=== PATIENT | female | born 1950 | race African-American/Black ===

== ENCOUNTER 2019-08-04 10:40 | Outpatient (CLI) | payer MEDICARE, OTHER ==
[2019-08-04 11:59] LABS: Bacteria/HPF 2+ HPF (None Seen); Bilirubin Negative (Negative); Blood, Urine 3+ (Negative); Calcium Oxalate Crystals Rare HPF (None Seen); Clarity Turbid (Clear); Glucose, Urine (Dipstick) Normal (Negative); Leukocyte 500 Leu/uL (Negative); Nitrite Negative (Negative); Protein, Urine (Dipstick) 100 mg/dL (Neg-Trace); RBC/HPF Greater than 50 HPF (0-3); Urobilinogen Normal mg/dL (Less than 2); WBC/HPF Greater than 50 HPF (0-3)
== END 2019-08-04 10:41 | disposition home or self-care (01) ==
LOC: LABBT 10:40
PROVIDERS: ATTEND Urology
DX: Z01.818 Encounter for other preprocedural examination (principal); N20.0 Calculus of kidney
CPT/HCPCS: 81001; 87086; 93005; 93010

== ENCOUNTER 2019-08-08 07:49 | Day surgery (SDC) | payer MEDICARE, OTHER ==
[2019-08-08] MEDS ORDERED: Levofloxacin 500 mg/D5W 100 ml Premix Bag ONE (10:54)
[2019-08-08] MEDS ORDERED: Iothalamate Meglumine 60% 50 ML VIAL FS ONE (11:16)
[2019-08-08] MEDS ORDERED: Fentanyl 100 MCG/2 ML VIAL ONE ×2 (11:18→13:25)
[2019-08-08] MEDS ORDERED: Famotidine/PF 20 mg/2ml Vial ONE (11:18)
[2019-08-08] MEDS ORDERED: PROPOFOL 200 MG/20 ML VIAL ONE (11:40)
[2019-08-08] MEDS ORDERED: Lidocaine 1% PF 5 ML VIAL ONE (11:40)
[2019-08-08] MEDS ORDERED: Glycopyrrolate 0.2 MG/ML 5 ML SYRINGE ONE (11:40)
[2019-08-08] MEDS ORDERED: Rocuronium Bromide 10 MG/ML (10ML VIAL) ONE (11:40)
[2019-08-08] MEDS ORDERED: Ondansetron PF 4 MG/2 ML Vial ONE (11:40)
[2019-08-08] MEDS ORDERED: hydrALAZINE 20 MG/ML VIAL ONE (13:10)
--- NOTE | 2019-08-08 13:34 | RAD ---
XR IVP Retrograde History: Right sided stones Comparison: CT Stone protocol June 2019 Findings: Multiple fluoroscopic images were obtained. Right double-J ureteral stent was placed in goo d position. Impression: Satisfactory postprocedural appearance right double-J ureteral stent.
[2019-08-08] MEDS ORDERED: HYDROmorphone 0.5 MG/0.5 ML SYRINGE ONE ×2 (14:01→15:29)
--- NOTE | 2019-08-08 14:18 | OP ---
DATE OF PROCEDURE: 08/08/2019 SERVICE: Urology. PREOPERATIVE DIAGNOSIS: Right ureteral and renal stones. POSTOPERATIVE DIAGNOSIS: Right ureteral and renal stones. PROCEDURES PERFORMED: Right ureteroscopy, laser lithotripsy, basket extraction of stones, and placement of 6 x 26 double-J stent with string attached. INDICATION FOR PROCEDURE: Ms. Lindsey is a 68-year-old black female with history of nephrolithiasis. She underwent urgent right ureteral stenting previously due to urinary tract infection with right-sided ureteral stones at [facility]. She is now coming in for definitive stone management. All risks and benefits have been discussed, and she has agreed to proceed forward. DESCRIPTION OF PROCEDURE: After identification of armband and verification of consent, the patient was brought back to the operating room, where she underwent general anesthesia with endotracheal intubation. She was then placed in dorsal lithotomy position, prepped and draped in usual sterile fashion. After appropriate time-out, a lubricated 22-American rigid cystoscope was introduced per urethra into the bladder, and attention turned to the right ureteral orifice, from which there was a stent emanating. Flexible grasper was used to grasp the stent and bring it up to the level of the urethral meatus. A 0.035 Sensor wire was then advanced through the ureteral stent up to the level of renal pelvis, and the stent was removed and discarded. A semi-rigid ureteroscope was then brought in alongside the Sensor wire into the distal ureter, where stones were encountered. There were approximately 5 stones within the ureter, each of which were lasered with a 270 micron ball-tip laser fiber and then extracted with a 1.9-American ZeroTip Nitinol basket. Upon completion, the entire ureter was clear. Using the ureteroscope, a Amplatz Super Stiff wire was then placed through the ureteroscope into the kidney. The ureteroscope was then removed and an 11/13 x 36 cm ureteral access sheath was advanced over the Super Stiff wire into the proximal ureter, inner cannula, and the Super Stiff wire were then removed leaving the outer sheath and Sensor wire in place as a safety wire. A flexible digital ureteroscope was then passed through the ureteral access sheath into the kidney, where one additional stone was found. This was lasered and then extracted using the same ZeroTip Nitinol basket. Final pyeloscopy did not demonstrate any additional residual stones within the kidney. There was one calyx, which was obstructed, which could not be accessed, but I felt that if there was a stone in there, it would not pass as the calyx has almost completely blocked. Pull-back ureteroscopy was employed and no additional stones were seen in the ureter. A 6 x 26 double-J stent was then re-advanced over the Sensor wire under fluoroscopy back up into the kidney. The wire pulled, leaving a good curl in the kidney and a good curl in the bladder confirmed fluoroscopically. The cystoscope sheath was used to drain the bladder and the string attached to the patient's inner thigh with an OpSite. The patient was then taken out of positioning, awakened, taken to PACU for recovery in stable condition. COMPLICATIONS: None. ESTIMATED BLOOD LOSS: Minimal. RETAINED TUBES AND DRAINS: A 6 x 26 double-J stent on the right with string attached. SPECIMENS: Stone for stone analysis. DISPOSITION: The patient will be discharged to home and follow up with me in approximately 2 to 3 weeks. She will be instructed to remove her stent on following Sunday by gently pulling the string until the stent is removed. Job ID: [id number]
[2019-08-08] MEDS ORDERED: Promethazine HCl 25 MG/ML VIAL ONE (14:27)
[2019-08-08] MEDS ORDERED: Labetalol HCl 100 MG/20 ML VIAL ONE (14:28)
[2019-08-08] MEDS ORDERED: Metoprolol Tartrate 5 MG/5 ML VIAL ONE ×2 (15:29→16:26)
[2019-08-08] MEDS ORDERED: HYDROcodone/Acetaminophen 5/325 mg Tablet ONE ×2 (15:39→19:05)
[2019-08-08] MEDS ORDERED: Enalaprilat Dihydrate 1.25 MG/ML VIAL ONE (17:49)
[2019-08-08] MEDS ORDERED: Enalaprilat Dihydrate 1.25 MG/ML VIAL SLOW IVP SCH (18:00)
[2019-08-14 16:09] LABS: CA Oxalate Monohydrate 55 % (.); CA Phosphate 35 % (.); Color Tan (.); Comment Note: (.); Stone Weight 171.3 mg (.); Uric Acid 10 % (.)
== END 2019-08-08 19:10 | disposition home or self-care (01) ==
LOC: SDC 07:49
PROVIDERS: ATTEND Urology
PROC: 0TF38ZZ Fragmentation in Right Kidney Pelvis, Via Natural or Artificial Opening Endoscopic (ICD-10-PCS; principal; 2019-08-08)
PROC: 0TF68ZZ Fragmentation in Right Ureter, Via Natural or Artificial Opening Endoscopic (ICD-10-PCS; 2019-08-08)
PROC: 0T768DZ Dilation of Right Ureter with Intraluminal Device, Via Natural or Artificial Opening Endoscopic (ICD-10-PCS; 2019-08-08)
DX: N20.2 Calculus of kidney with calculus of ureter (principal); M19.90 Unspecified osteoarthritis, unspecified site; M06.9 Rheumatoid arthritis, unspecified; I11.0 Hypertensive heart disease with heart failure; I50.9 Heart failure, unspecified; E78.5 Hyperlipidemia, unspecified; E11.9 Type 2 diabetes mellitus without complications; J45.909 Unspecified asthma, uncomplicated
CPT/HCPCS: 74420; 82365; 88300; J0131; J0360; J1170; J1956; J2001; J2405; J2550; J2704; J2710; J3010; S0028

== ENCOUNTER 2019-11-10 21:54 | Observation (INO) | payer MEDICARE, OTHER ==
--- NOTE | 2019-11-10 23:35 | PDOC.FPRHP ---
- History of Present Illness Chief Complaint: chest pain, SOB History of Present Illness: This is a 68yo AA F with PMH of DM, HTN, HLD, and previous hx of NV who presented to the [place] ER with chest pain that began earlier tonight. She reports the chest pain was sharp and located in the L chest, did not radiate, intermittent. The chest pain was associated with SOB and nausea. She did not have any vomiting. She states the episode of chest pain lasted < 30min. It was not worse with exertion. Denies any diaphoresis. She reports that her L lower extremity was swollen yesterday and was associated with pain. She states that she is able to ambulate without chest pain or SOB. Patient states that she had an NV about 10 years ago- video operator was Dr. Alvarado. States this pain feels different than her previous NV. She believes they did a cath, but is unsure. Denies any stents and heart surgery. Denies fever/chills, NVD, abd pain, skin changes, vision changes, headache. Endorses difficulty going up stairs due to getting SOB. ED Course: given ASA, neg trops, neg CXR, CT neg for PE, d-dimer positive - Allergies/Adverse Reactions Allergies Allergy/AdvReac Type Severity Reaction Status Date / Time No Known Allergies Allergy Verified 11/11/19 09:43 - Home Medications Medication Instructions Recorded Confirmed Type Atenolol [Tenormin] 1 cap PO QAM 08/04/19 11/11/19 History Lisinopril 20 mg PO BID 08/04/19 11/11/19 History metFORMIN [Glucophage] 1,000 mg PO BID 08/04/19 11/11/19 History Amlodipine [Norvasc] 10 mg PO DAILY 11/11/19 11/11/19 History Atorvastatin Calcium 20 mg PO DAILY 11/11/19 11/11/19 History Meloxicam 7.5 mg PO DAILY 11/11/19 11/11/19 History Pantoprazole [Protonix] 40 mg PO DAILY 11/11/19 11/11/19 History Pregabalin 100 mg PO BID 11/11/19 11/11/19 History - History PMHx: DM, HTN, HLD, hx of NV (10 yrs ago), recurrent UTIs PSHx: cholecystectomy, hysterectomy, ganglion cyst removal (L wrist), mass on kidney removed FHx: unknown Social: Tobacco - quit 30 yrs ago, smoked for 20yrs - >1pack/day, denies alcohol or drug use - Review of Systems General: denies: fever/chills, weight/appetite/sleep changes, night sweats, fatigue Eyes: denies: vision changes ENT: denies: nasal congestion Respiratory: reports: shortness of breath. denies: cough, congestion, exercise intolerance Cardiovascular: reports: chest pain, edema. denies: palpitation, paroxysmal nocturnal dyspnea, orthopnea Gastrointestinal: reports: nausea. denies: vomiting, diarrhea, constipation, abdominal pain Genitourinary: denies: dysuria Skin: denies: rashes Musculoskeletal: reports: swelling. denies: pain, tenderness Neurological: denies: weakness - Vital signs BP: 143/81, MAP: 101, Pulse: 72, Resp: 17, Temp: 98.0 (Oral), Pain: 0, O2 sat: 98 on (Room Air), Time: 11/10/2019 22:12. Weight 105kg - Physical Exam Constitutional: NAD, awake, alert and oriented, well developed HEENT: normocephalic and atraumatic, EOMI, grossly normal vision, grossly normal hearing Neck: supple, FROM Chest: no-tender to palpation, no lesions Heart: RRR, normal S1/S2, no murmurs/rubs/gallops, pulses present -Heart: trace edema b/l ; negative homans sign b/l Lungs: CTAB, no respiratory distress, good air movement, no wheezing, no retractions Abdomen: soft, non-tender, bowel sounds present Musculoskeletal: normal structure, normal tone, ROM grossly normal Neurological: no focal deficit Skin: no rash/lesions, good turgor, capillary refill <2 seconds Heme/Lymphatic: no unusual bruising or bleeding, no purpura Psychiatric: normal mood and affect, good judgment and insight FMR H&P: Results - Labs Result Diagrams: 11/11/19 04:32 11/11/19 04:31 - EKG Interpretation EKG: NSR - Radiology Interpretation CT scan - chest Status: image reviewed by me, report reviewed by me (neg PE) Additional comment: no acute abnormalities FMR H&P: A/P - Problem List (1) Atypical chest pain Current Visit: Yes Status: Acute Code(s): R07.89 - OTHER CHEST PAIN (2) Diabetes mellitus Current Visit: Yes Status: Acute Code(s): E11.9 - TYPE 2 DIABETES MELLITUS WITHOUT COMPLICATIONS (3) HLD (hyperlipidemia) Current Visit: Yes Status: Acute Code(s): E78.5 - HYPERLIPIDEMIA, UNSPECIFIED (4) HTN (hypertension) Current Visit: Yes Status: Acute Code(s): I10 - ESSENTIAL (PRIMARY) HYPERTENSION (5) Elevated d-dimer Current Visit: Yes Status: Acute Code(s): R79.89 - OTHER SPECIFIED ABNORMAL FINDINGS OF BLOOD CHEMISTRY - Plan Atypical chest pain, ACS r/o Patient with sharp chest pain, L sided, significant PMH. Trop neg. CXR neg. CT neg for PE. HEART Score: 6. - Admit to tele, obs - NPO at midnight for NM stress test - trend trops - pending tsh DM - continue home meds - pending a1c HTN - continue home meds HLD - continue home meds - pending lipid panel Elevated D-Dimer - no signs of LE swelling, negative homans sign, negative CTA Dispo: admit to tele, obs Diet: NPO at midnight Code: FULL FMR H&P: Upper Level - Pertinent history 68 year old female presents with a one day history of sharp, left sided chest pain. Patient states that she was playing dominoes when it started. Patient states that it was occurring every 15 minutes and lasting for about 30 minutes. It only happened a few times be resolved upon presentation to ED. Patient endorses some nausea but no associated emesis. Patient endorses some shortness of breath associated with episode. She endorses radiation of pain to left arm. No increase in pain with exertion. She did not require nitro for relief of pain. Patient endorses a PMH of NV although she has never had a cardiac cath or stress test done before. - Pertinent findings General: Alert and oriented x3. No acute distress. HEENT: MMM Card: RRR, no murmur Resp: CTA bilaterally, no acute respiratory distress Abdomen: Non-tender to palpation, obese, bowel sounds present Ext: Trace bilateral LE edema Skin: Warm and dry MSK: Exquisitely tender to palpation over left anterior chest - Plan Date/Time: 11/10/19 1795 Nadiya Bella, have evaluated this patient and agree with findings/plan as outlined by consultant intern resident. Pertinent changes/additions are listed here. Atypical chest pain - NPO at 00:00 - Plan for stress test this AM - Heart score: 4 - Risk stratification: FLP, HgA1c, Mg, P - Echo pending to further investigate orthopnea, LE edema, and dyspnea on exertion DM type II - Continue home medications - ACHS protocol HTN - Continue home medications HLD - Continue home medications DVT PPX: SCD's Code Status: Full Dispo: Obs on telemetry. Anticipate LOS <48 hours. Addendum - Attending - Attending Attestation Date/Time: 11/11/19 1111 I personally evaluated the patient and discussed the management with Dr. Parkinson /Thanh. I agree with the History, Examination, Assessment and Plan documented above with any addition or exceptions noted below.
[2019-11-11] MEDS ORDERED: Nitroglycerin 0.4 MG TAB (25 Tab Bottle) SL PRN (02:26)
[2019-11-11] MEDS: Lactated Ringer's 1,000 ML IV SCH ×2 (03:18→13:16)
[2019-11-11 04:51] LABS: Hemoglobin A1c 6.2 % (4.0-6.0)
[2019-11-11 05:05] LABS: Phosphorus 4.1 mg/dL (2.3-4.7)
[2019-11-11 05:08] LABS: Anion Gap 16 mmol/L (10-20); BUN (Urea Nitrogen) 10 mg/dL (9.8-20.1); Calc. Creatinine Clearance 0 mL/min (70-130); Calcium 9.2 mg/dL (7.8-10.44); Carbon Dioxide 25 mmol/L (23-31); Cardiac Risk 3.6 (Less than 4.5); Chloride 104 mmol/L (98-107); Cholesterol 154 mg/dl (< 200 Desired); Estimated GFR-MDRD 88; Glucose 123 mg/dL (80-115); HDL Cholesterol 43 mg/dL (>60 Neg Risk); LDL Cholesterol, Calculated 76 mg/dL; Magnesium 1.7 mg/dL (1.6-2.6); Potassium 3.7 mmol/L (3.5-5.1); Sodium 141 mmol/L (136-145); Triglycerides 173 mg/dL (Less than 150)
[2019-11-11 05:12] LABS: Troponin I Less than 0.010 ng/mL (< 0.028)
[2019-11-11 05:58] LABS: #Basophils 0.1 thou/uL (0.0-0.2); #Eosinphils 0.1 thou/uL (0.0-0.7); #Lymphocytes 1.9 thou/uL (1.20-3.40); #Monocytes 0.6 thou/uL (0.11-0.59); #Neutrophils 6.8 thou/uL (1.40-6.50); %Basophils 0.9 % (0.0-1.0); %Eosinophils 1.4 % (0.0-10.0); %Lymphocytes 19.6 % (21.0-51.0); %Monocytes 6.8 % (0.0-10.0); %Neutrophils 71.4 % (42.0-75.0); Hemoglobin 11.7 g/dL (12.0-16.0); MDiff Complete? YES; Mean Corpuscular HGB CONC 32.4 g/dL (32.0-36.0); Mean Corpuscular Hemoglobin 30.6 pg (27.0-31.0); Mean Corpuscular Volume 94.4 fL (78.0-98.0); Mean Platelet Volume 9.5 fL (7.4-10.4); Platelet Clumps SLIGHT; Platelet Count 232 thou/uL (130-400); Platelet Morphology Comment PLT clumps seen-ADEQ; RBC Distribution Width 12.5 % (11.5-14.5); Red Blood Cell (RBC) Count 3.82 mill/uL (4.20-5.40); White Blood Cell (WBC) Count 9.5 thou/uL (4.8-10.8)
[2019-11-11 08:21] LABS: Troponin I Less than 0.010 ng/mL (< 0.028)
[2019-11-11] MEDS ORDERED: HumaLOG 300 UNITS/3 ML VIAL SC PRN ×2 (08:51)
[2019-11-11] MEDS ORDERED: Dextrose 5% in Water 1,000 ML IV PRN (08:51)
[2019-11-11] MEDS ORDERED: Dextrose 50% Abboject 50 ML SYRINGE SLOW IVP PRN (08:51)
[2019-11-11] MEDS ORDERED: Enoxaparin Sodium 40 MG/0.4 ML SYRINGE SC SCH (09:00)
[2019-11-11] MEDS ORDERED: Ondansetron ODT 4 MG TAB SL PRN (10:19)
[2019-11-11 10:21] VITALS: BMI 36.2
[2019-11-11] MEDS: Aspirin 325 mg Enteric Coated Tablet PO SCH (13:22)
[2019-11-11] MEDS ORDERED: ADENOSINE 60 MG/20 ML VIAL ONE (16:14)
[2019-11-11] MEDS ORDERED: metFORMIN 850 MG TAB PO SCH (17:00)
[2019-11-11] MEDS: metFORMIN 500 MG TAB PO SCH (19:04)
[2019-11-11] MEDS: Pregabalin 50 MG CAP PO SCH (20:27)
[2019-11-11] MEDS: Lisinopril 20 MG TAB PO SCH (20:28)
[2019-11-11] MEDS ORDERED: Atorvastatin Calcium 20 MG TAB PO SCH (21:00)
[2019-11-12 05:11] LABS: #Basophils 0.1 thou/uL (0.0-0.2); #Eosinphils 0.1 thou/uL (0.0-0.7); #Lymphocytes 1.9 thou/uL (1.20-3.40); #Monocytes 0.5 thou/uL (0.11-0.59); #Neutrophils 5.6 thou/uL (1.40-6.50); %Basophils 0.8 % (0.0-1.0); %Eosinophils 1.8 % (0.0-10.0); %Lymphocytes 22.6 % (21.0-51.0); %Monocytes 6.5 % (0.0-10.0); %Neutrophils 68.4 % (42.0-75.0); Hemoglobin 10.7 g/dL (12.0-16.0); Mean Corpuscular HGB CONC 34.2 g/dL (32.0-36.0); Mean Corpuscular Hemoglobin 32.4 pg (27.0-31.0); Mean Corpuscular Volume 94.8 fL (78.0-98.0); Mean Platelet Volume 7.9 fL (7.4-10.4); Platelet Count 282 thou/uL (130-400); RBC Distribution Width 12.5 % (11.5-14.5); White Blood Cell (WBC) Count 8.2 thou/uL (4.8-10.8)
[2019-11-12 05:31] LABS: Anion Gap 12 mmol/L (10-20); BUN (Urea Nitrogen) 12 mg/dL (9.8-20.1); Calc. Creatinine Clearance 117 mL/min (70-130); Calcium 8.8 mg/dL (7.8-10.44); Carbon Dioxide 25 mmol/L (23-31); Chloride 106 mmol/L (98-107); Estimated GFR-MDRD 86; Glucose 123 mg/dL (80-115); Potassium 3.8 mmol/L (3.5-5.1); Sodium 139 mmol/L (136-145)
--- NOTE | 2019-11-12 06:31 | PDOC.FM ---
- Subjective Subjective: Pt went for 2nd half of stress test this morning. No acute overnight events, vitals stable. Tele monitoring: SR 60-70's No CP, SOB - Objective MAR Reviewed: Yes Vital Signs & Weight: Vital Signs (12 hours) Temp Pulse Resp BP BP Pulse Ox 11/12/19 05:10 97.9 F 82 18 115/55 L 96 11/11/19 23:45 97.8 F 86 16 127/59 L 95 11/11/19 20:28 122/58 L 11/11/19 19:15 97.9 F 77 15 122/58 L 99 Weight Weight 108.771 kg I&O: 11/10/19 11/11/19 11/12/19 06:59 06:59 06:59 Intake Total 1640 Output Total 700 Balance 940 Result Diagrams: 11/12/19 04:58 11/12/19 04:58 Phys Exam - Physical Examination Constitutional: NAD HEENT: moist MMs, sclera anicteric Neck: no JVD, supple Respiratory: no wheezing, no rales, no rhonchi, clear to auscultation bilateral Cardiovascular: RRR, no significant murmur, no rub Gastrointestinal: soft, non-tender, no distention, positive bowel sounds Musculoskeletal: no edema, pulses present Neurological: non-focal, moves all 4 limbs Psychiatric: normal affect, A&O x 3 Skin: no rash, normal turgor, cap refill <2 seconds Dx/Plan (1) Atypical chest pain Code(s): R07.89 - OTHER CHEST PAIN Status: Acute (2) Diabetes mellitus Code(s): E11.9 - TYPE 2 DIABETES MELLITUS WITHOUT COMPLICATIONS Status: Acute (3) HLD (hyperlipidemia) Code(s): E78.5 - HYPERLIPIDEMIA, UNSPECIFIED Status: Acute (4) HTN (hypertension) Code(s): I10 - ESSENTIAL (PRIMARY) HYPERTENSION Status: Acute - Plan Plan: Atypical chest pain, ACS r/o Patient with sharp chest pain, L sided, significant PMH. Trop neg. CXR neg. CT neg for PE. HEART Score: 6. - Admit to tele, obs - NPO at midnight for NM stress test, X2 day stress test 1st half completed . - Trops neg - tsh nml - Echo: EF 60-65%, mild LVH. 1/3 diastolic dysfunction. - Stress test resulted as apical scaring, with no ischemic changes. DM - continue home meds - a1c 6.2% HTN - continue home meds HLD - continue home meds - lipid panel: Tri 173, T ch 154, LDL 76, HDL 43 Elevated D-Dimer - no signs of LE swelling, negative homans sign, negative CTA Dispo: admit to tele, obs Diet: HH diet after stress. Code: FULL Addendum - Attending - Attending Attestation Date/Time: 11/12/19 6047 I personally evaluated the patient and discussed the management with Dr. Roldan. I agree with the History, Examination, Assessment and Plan documented above with any addition or exceptions noted below.
[2019-11-12 08:37] VITALS: BP 137/78; TEMP 98
[2019-11-12] MEDS ORDERED: Amlodipine 10 MG TAB PO SCH (09:00)
[2019-11-12] MEDS ORDERED: Atorvastatin Calcium 20 MG TAB PO SCH (09:00)
--- NOTE | 2019-11-12 09:03 | NM ---
NM Cardiac Stress W EF WF HISTORY: Chest pain. COMPARISON: None. FINDINGS: Examination is performed using 29.7 mCi 90 9M technetium sestamibi on the stress and 28.7 m Ci on the resting images. This shows a small area of apical scar no ischemic changes seen. Wall motion: There is symmetric contractility to the ventricle. Left ventricular ejection fraction: The calculated left ventricular ejection fraction is 64%. IMPRESSION: Small apical scar. No ischemic change.
[2019-11-12] MEDS: Lisinopril 20 MG TAB PO SCH (09:05)
[2019-11-12] MEDS: Aspirin 325 mg Enteric Coated Tablet PO SCH (09:05)
[2019-11-12] MEDS: metFORMIN 500 MG TAB PO SCH (09:05)
[2019-11-12] MEDS: Pregabalin 50 MG CAP PO SCH (09:06)
--- NOTE | 2019-11-12 22:07 | DIS ---
DATE OF ADMISSION: 11/10/2019 DATE OF DISCHARGE: 11/12/2019 RESIDENT: Annette Roldan DO ADMITTING ATTENDING: Storm Dela Cruz MD DISCHARGE ATTENDING: Storm Dela Cruz MD CONSULTS: None. PROCEDURES: Echocardiogram, which showed ejection fraction 60% to 65% with mild left ventricular hypertrophy with 1/3 diastolic dysfunction. Nuclear medicine stress test on 11/10, which showed small apical scar, but no ischemic change. DIAGNOSES: 1. Atypical chest pain. 2. Diabetes mellitus. 3. Hypertension. 4. Hyperlipidemia. 5. Elevated D-dimer with negative CTA. DISCHARGE MEDICATIONS: 1. Aspirin 325 mg p.o. daily. 2. Amlodipine 10 mg p.o. daily. 3. Atenolol 25 mg p.o. daily. 4. Atorvastatin 20 mg p.o. daily. 5. Lisinopril 20 mg p.o. daily. 6. Meloxicam 7.5 mg p.o. daily. 7. Metformin 1000 mg p.o. daily. 8. Protonix 40 mg p.o. daily. 9. Pregabalin 100 mg p.o. b.i.d. HISTORY OF PRESENT ILLNESS/HOSPITAL COURSE: Ms. Lindsey is a 68-year-old female with a past medical history of type 2 diabetes mellitus, hypertension, hyperlipidemia, coming into the emergency department due to chest pain. She was admitted for an ACS rule out. Her troponins were negative and were trended and remained negative. Chest x-ray had no acute findings. CTA was negative for any pulmonary embolism. She did have elevated D-dimer. She was asymptomatic and her PE, CTA ruled out. The patient had an echocardiogram, which was suggestive of 1 /3 diastolic dysfunction with mild LVH. This is most likely due to hypertension. Over the course of time, I recommended to the patient that she continue her antihypertensive medications and to optimize her blood pressure to further treat. The patient also underwent a stress test, which showed an apical scar, but no ischemic changes, is likely due to an old incident. The patient's fasting lipid panel showed triglycerides 173, total cholesterol 154, LDL 76. HDL 43. I recommended to the patient that she continue her statin therapy. The patient's aspirin was increased to 325 mg p.o. daily. The patient was eager to return home. She had no further chest pain upon admission to the hospital. DISPOSITION: Stable upon discharge, improved. No recurrence of chest pain. DISCHARGE INSTRUCTIONS: 1. Location: Home. 2. Diet: Heart healthy and consistent carb. 3. Activity: As tolerated. 4. Followup: With primary care, Dr. Ken Schwab in 7 days. Job ID: [id number] MTDD
--- NOTE | 2019-11-14 13:11 | STRESS ---
Acquisition Time: 2019-11-11 11:26:04 Total Exercise Time: 00:04:00 Test Indications: CHEST PAIN Medications: Protocol: ADENOSINE Max HR: 111 BPM 72% of Pred: 154 BPM Max BP: 148/076 mmHG Max Work Load: 1.0 METS RESTING ECG: NORMAL SINUS RHYTHM AT 66 BPM WITH NON-SPECIFIC T-WAVE CHANGES AND POOR R-WAVE PROGRESSION SYMPTOMS: NAUSEA AND HEADACHE NORMAL BP RESPONSE ECTOPY: NONE ECG STRESS: T-WAVE CHANGES MORE PRONOUNCED WITH ADENOSINE INFUSION INTERPRETATION: INDETERMINATE ECG/AWAIT NUCLEAR IMAGES FOR DEFINITIVE DIAGNOSIS Confirmed by DOROTHEA CUEVAS ([id number]), map editor YOLETTE MCCOY ([id number]) on 11/14/2019 1:11:12 PM Referred By: DO Jayro DOSHI Confirmed By:DOROTHEA CUEVSA
--- NOTE | 2019-11-15 10:12 | EKG ---
Test Reason : Blood Pressure : / mmHG Vent. Rate : 077 BPM Atrial Rate : 077 BPM P-R Int : 154 ms QRS Dur : 086 ms QT Int : 390 ms P-R-T Axes : 117 184 136 degrees QTc Int : 441 ms Suspect arm lead reversal, interpretation assumes no reversal Normal sinus rhythm Right superior axis deviation Pulmonary disease pattern Abnormal ECG Confirmed by ERNIE TOUSSAINT ([id number]), restaurant expeditor CHIQUITA LOZANO ([id number]) on 11/15/2019 10:11:39 AM Referred By: Confirmed By:ERNIE TOUSSAINT
== END 2019-11-12 11:51 | disposition home or self-care (01) ==
LOC: ERS 21:54 → ERHOLD 23:33 → 2SW 11-11 09:07
PROVIDERS: ADMIT Family Medicine; ATTEND Family Medicine
DX: R07.89 Other chest pain (principal); I10 Essential (primary) hypertension; E11.9 Type 2 diabetes mellitus without complications; E78.5 Hyperlipidemia, unspecified; I25.2 Old myocardial infarction; Z79.84 Long term (current) use of oral hypoglycemic drugs; Z79.899 Other long term (current) drug therapy; Z87.891 Personal history of nicotine dependence
CPT/HCPCS: 78452; 80048 ×2; 80061; 82962; 83036; 83735; 84100; 84443; 84484 ×3; 85025 ×2; 93005; 93017; 93306; 99285; A9500; 36415; 36416; G0378; J0153

== ENCOUNTER 2023-11-09 01:47 | Emergency (ER) | payer MEDICARE, OTHER ==
[2023-11-09 02:12] LABS: #Eosinphils 0.1 thou/uL (0.0-0.7); #Monocytes 0.5 thou/uL (0.11-0.59); #Neutrophils 10.2 thou/uL (1.40-6.50); %Basophils 0.3 % (0.0-1.0); %Eosinophils 0.7 % (0.0-10.0); %Lymphocytes 11.2 % (21.0-51.0); %Monocytes 3.7 % (0.0-10.0); %Neutrophils 83.3 % (42.0-75.0); Hematocrit 38.3 % (36.0-47.0); Hemoglobin 13.1 g/dL (12.0-16.0); Mean Corpuscular HGB CONC 34.2 g/dL (32.0-36.0); Mean Corpuscular Hemoglobin 30.6 pg (27.0-31.0); Mean Corpuscular Volume 89.5 fl (78.0-98.0); Mean Platelet Volume 11.1 fL (7.4-10.4); Platelet Count 276 10x3/uL (130-400); RBC Distribution Width 13.6 % (11.5-14.5); Red Blood Cell (RBC) Count 4.28 mill/uL (4.20-5.40); White Blood Cell (WBC) Count 12.3 10x3/uL (4.8-10.8)
[2023-11-09] MEDS ORDERED: Morphine 4 MG/ML VIAL ONE (02:26)
[2023-11-09] MEDS ORDERED: Ondansetron PF 4 MG/2 ML Vial ONE (02:26)
[2023-11-09 02:48] LABS: Bacteria/HPF None Seen HPF (None Seen); Bilirubin Negative (Negative); Blood, Urine 2+ (Negative); CAUTI Indications for Culture Alt mental st,lethar; Clarity Clear (Clear); Glucose, Urine (Dipstick) Normal (Negative); Ketone, Urine Negative (Negative); Leukocyte Negative Leu/uL (Negative); Nitrite Negative (Negative); Protein, Urine (Dipstick) 20 mg/dL (Neg-Trace); RBC/HPF Greater than 50 HPF (0-3); Specific Gravity, Urine 1.012 (1.002-1.036); Squamous Epithelial None Seen HPF (0-3); Urobilinogen Normal mg/dL (Less than 2); WBC/HPF 0-3 HPF (0-3)
[2023-11-09 02:55] LABS: Urine Culture Reflex No No
[2023-11-09] MEDS ORDERED: HYDROcodone/Acetaminophen 10/325 mg Tablet ONE ×2 (03:36→07:08)
== END 2023-11-09 06:55 | disposition home or self-care (01) ==
LOC: ERS 01:47
DX: K57.90 Diverticulosis of intestine, part unspecified, without perforation or abscess without bleeding (principal); N20.0 Calculus of kidney; R31.9 Hematuria, unspecified; I11.0 Hypertensive heart disease with heart failure; I50.9 Heart failure, unspecified; E11.9 Type 2 diabetes mellitus without complications; Z55.6 Problems related to health literacy
CPT/HCPCS: 74176; 81001; 83880; 84484; 85025; 93005; J2270; J2405